=== PATIENT | female | born 2000 | race Caucasian/White ===

== ENCOUNTER 2025-06-14 23:24 | Emergency (ER) | payer OTHER ==
[2025-06-14] MEDS ORDERED: IBUPROFEN 400 MG TAB ONE (23:42)
[2025-06-15] MEDS ORDERED: NA CHLORIDE 0.9% 1,000 ML ONE ×2 (01:03→03:05)
[2025-06-15 01:18] LABS: Urine Microscopic Reflex YN NO UMIC
[2025-06-15 01:45] LABS: Absolute Lymphocytes (CBC) 0.6 K/uL (0.7-4.9); Hematocrit 39.2 % (36.0-45.0); Hemoglobin 13.3 g/dL (12.0-15.0); MCH 29.6 pg (27.0-35.0); MCHC 34.0 g/dL (32.0-36.0); MCV 87.0 fL (80-100); MPV 8.7 fL (7.6-11.3); Nucleated RBC Absolute Count 0.0 (0-0); Nucleated Red Blood Cells % 0.0 % (0-0); RBC Red Blood Cell Count 4.50 M/uL (3.86-4.86); White Blood Count 9.50 thou/uL (4.3-10.9)
[2025-06-15 02:05] LABS: ALT/SGPT 45.0 U/L (13-56); AST/SGOT 36.0 U/L (15-37); Albumin 3.6 g/dL (3.4-5.0); Albumin/Globulin Ratio 0.8 (1.1-1.8); Alkaline Phosphatase 85.0 U/L (45-117); Anion Gap 8.1 mEq/L (5.0-15.0); BUN Blood Urea Nitrogen 10.0 mg/dL (7-18); Globulin 4.5 g/dL (2.3-3.5); Glucose Level 106.0 mg/dL (74-106); Lipase 26.0 U/L (13-75); Potassium 4.1 mEq/L (3.5-5.1)
[2025-06-15 02:07] LABS: Influenza A Ag Negative; Influenza B Ag Negative; SARS-CoV-2 Antigen Rapid Res Negative (Negative)
[2025-06-15] MEDS ORDERED: AZITHROMYCIN 250 MG TAB ONE (03:05)
[2025-06-15] MEDS ORDERED: CEFTRIAXONE 1000 MG/VIAL ONE (03:05)
--- NOTE | 2025-06-15 03:14 | RAD REPORT ---
EXAM DESCRIPTION: Chest Pa And Lat (2 Views) RadLex: XR CHEST 2 VIEWS CLINICAL HISTORY: 24 years Female, Cough;Fever COMPARISON: None. FINDINGS: PA and lateral upright views of the chest. Trachea is midline. Normal size of the cardiac silhouette. Lateral right basilar opacities likely involving the right lower and right middle lobes, suspicious for pneumonia. No pleural effusion or pneumothorax. No acute osseous abnormality. IMPRESSION: Lateral right basilar opacities suspicious for pneumonia. Electronically signed by: Ana Landers MD 06/15/2025 03:09 AM CDT Due to temporary technical issues with the PACS/[employer] reporting system, reports are being juniot d by the in-house radiologist without review as a courtesy to ensure prompt reporting. The interpreting radiologist is fully responsible for the content of the report. Transcribed Date/Time: 06/15/2025 3:13 AM
--- NOTE | 2025-06-15 03:27 | EDPHYS ---
Physician Documentation [facility] Name: Marilia Holt Age: 24 yrs Sex: Female : 2000 Arrival Date: 06/14/2025 Time: 23:24 Bed 20 Private MD: ED Physician Augustus Myers HPI: 06/14 23:55 This 24 yrs old Female presents to ER via Ambulatory with complaints of Fever. cp 23:55 The patient reports fever, with an emergency department temperature of 102.8 degrees cp Fahrenheit. 23:55 Onset: The symptoms/episode began/occurred 3 day(s) ago. Associated signs and symptoms: cp Pertinent negatives: abdominal pain, chest pain, diarrhea, vomiting. Severity of symptoms: in the emergency department the symptoms are unchanged despite home interventions. Patient reports testing negative for COVID-19 and Influenza yesterday. 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 - Infectious Disease History:: Denies. - Social history:: Smoking status: Reported history of juuling and/or vaping. ROS: 23:57 Constitutional: Positive for body aches, fever, cp 23:57 Eyes: Negative for injury, pain, redness, and discharge, cp 23:57 ENT: Negative for drainage from ear(s), ear pain, difficulty swallowing, difficulty handling secretions, 23:57 Respiratory: Positive for cough, Negative for wheezing, 23:57 Abdomen/GI: Negative for abdominal pain, vomiting, diarrhea, constipation, 23:57 Skin: Negative for cellulitis, rash, 23:57 Neuro: Negative for altered mental status, dizziness, weakness, 23:57 All other systems are negative, Exam: 23:59 Constitutional: The patient appears in no acute distress, alert, awake, non-toxic, well cp developed, well nourished, febrile, obviously ill, uncomfortable, 23:59 Head/Face: Normocephalic, atraumatic. cp 23:59 Eyes: Periorbital structures: appear normal, Conjunctiva: normal, no exudate, no injection, Sclera: no appreciated abnormality, Lids and lashes: appear normal, bilaterally, 23:59 ENT: External ear(s): are unremarkable, Ear canal(s): are normal, clear, TM's: dullness, bilaterally, Nose: is normal, Mouth: Lips: moist, Oral mucosa: moist, Posterior pharynx: Airway: no evidence of obstruction, patent, Tonsils: no enlargement, no exudate, erythema, that is mild, exudate, is not appreciated, 23:59 Neck: ROM/movement: Meningeal signs: are not present, Lymph nodes: no appreciated lymphadenopathy, 23:59 Chest/axilla: Inspection: normal, 23:59 Cardiovascular: Rate: tachycardic, Rhythm: regular, 23:59 Respiratory: the patient does not display signs of respiratory distress, Respirations: normal, no use of accessory muscles, no retractions, labored breathing, is not present, Breath sounds: bronchial sounds, that are mild, are heard diffusely, stridor, is not appreciated, wheezing: is not appreciated, 23:59 Abdomen/GI: Inspection: abdomen appears normal, Palpation: abdomen is soft and non-tender, in all quadrants, 23:59 Skin: no rash present. 23:59 Neuro: Orientation: to person, place \T\ time. Mentation: is normal, Vital Signs: 23:35 BP 123 / 83; Pulse 128; Resp 19 S; Temp 102.8(O); Pulse Ox 100% on R/A; Weight 61.23 ha1 kg; Height 5 ft. 6 in. ; 06/15 01:43 BP 96 / 61; Pulse 78; Resp 18; Temp 99.3(O); Pulse Ox 100% on R/A; Pain 5/10; tb4 02:50 BP 99 / 69; Pulse 70; Resp 20; Pulse Ox 97% on R/A; Pain 0/10; tb4 03:51 BP 93 / 64; Pulse 76; Resp 18; Pulse Ox 98% on R/A; Pain 0/10; tb4 04:37 BP 96 / 86; Pulse 72; Resp 19; Temp 98.1(O); Pulse Ox 98% on R/A; Pain 0/10; tb4 06/14 23:35 Body Mass Index 21.79 (61.23 kg, 167.64 cm) ha1 06/15 01:43 Pain Scale: Adult tb4 02:50 Pain Scale: Adult tb4 03:51 Pain Scale: Adult tb4 04:37 Pain Scale: Adult tb4 MDM: 06/14 23:58 Medical Screening Exam initiated 06/15 03:25 Data reviewed: vital signs, nurses notes, lab test result(s), EKG, radiologic studies, cp plain films, and as a result, I will discharge patient. 03:25 I considered the following discharge prescriptions or medication management in the emergency department Medications were administered in the Emergency Department. See MAR. Counseling: I had a detailed discussion with the patient and/or guardian regarding the historical points, exam findings, and any diagnostic results supporting the discharge/admit diagnosis, lab results, radiology results, the need for outpatient follow up, a family practitioner, to return to the emergency department if symptoms worsen or persist or if there are any questions or concerns that arise at home. Response to treatment: the patient's symptoms have mildly improved after treatment, and as a result, I will discharge patient. ED course: Vital signs stable. Fever resolved. Discussed results of chest x-ray showing pneumonia. No signs of respiratory distress on reevaluation. Will discharge patient with oral antibiotics, with recommendation to follow-up with PCP in the next 2 to 3 days. 06/14 23:59 Order name: UA Rfx Bret Cult if indicated; Complete Time: 02:01 06/15 02:02 Interpretation: Normal except: UBLD 2+. 06/14 23:59 Order name: Test, Urine; Complete Time: 02:01 06/15 02:02 Interpretation: Reviewed. 06/15 00:59 Order name: COVID-19 Ag + Flu A+B Ag; Complete Time: 02:38 06/15 02:38 Interpretation: Reviewed. 06/15 00:59 Order name: [place] Screen Profile; Complete Time: 02:38 06/15 00:59 Order name: CBC with Diff; Complete Time: 02:38 06/15 02:38 Interpretation: Normal except: AURA% 83.2; LYM% 5.9; LYMA 0.6. 06/15 00:59 Order name: CMP; Complete Time: 02:38 06/15 02:38 Interpretation: Normal except: NA 134; BILIT 1.1; GLOB 4.5; A/G 0.8. 06/15 00:59 Order name: Lipase; Complete Time: 02:38 cp 06/15 00:59 Order name: Lactate w/ 2H reflex if indic.; Complete Time: 02:38 cp 06/15 00:59 Order name: XRAY Chest Pa And Lat (2 Views) cp 06/15 03:19 Interpretation: Report reviewed. cp 06/15 00:59 Order name: IV Saline Lock; Complete Time: 01:40 cp 06/15 00:59 Order name: Labs collected and sent; Complete Time: 01:40 cp 06/15 02:41 Order name: PO challenge; Complete Time: 03:33 cp Administered Medications: 06/14 23:52 Drug: Ibuprofen PO 800 mg PO once Route: PO; ha1 06/15 00:42 Follow up: Response: No adverse reaction tb4 01:39 Drug: NS 0.9% IV 1000 ml IV at 1 bolus Per protocol; to be given as a bolus over 60 tb4 minutes Route: IV; Rate: 1 bolus; Site: left wrist; 03:33 Follow up: Response: No adverse reaction; IV Status: Completed infusion tb4 03:31 Drug: NS 0.9% IV 1000 ml IV at 1 bolus Per protocol; to be given as a bolus over 60 tb4 minutes Route: IV; Rate: 1 bolus; Site: left hand; 04:35 Follow up: Response: No adverse reaction; IV Status: Completed infusion tb4 03:33 Drug: AZITHromycin PO 500 mg PO once Route: PO; tb4 03:52 Follow up: Response: No adverse reaction tb4 03:34 Drug: Rocephin IV 1 grams IV at calculated rate once; Given slow IV push per pharmarcy tb4 instructions Route: IV; Rate: calculated rate; Site: left hand; 03:52 Follow up: Response: No adverse reaction; IV Status: Completed infusion tb4 Disposition: 07:43 Co-signature as Attending Physician, Augustus Myers DO I agree with the assessment and tt7 plan of care. Disposition Summary: 06/15/25 03:26 Discharge Ordered Notes: Location: Home cp Problem: new cp Symptoms: have improved cp Condition: Stable cp Diagnosis - Pneumonia in diseases classified elsewhere cp - Fever presenting with conditions classified elsewhere cp - Cough cp Followup: cp - With: Private Physician - When: 2 - 3 days - Reason: Recheck today's complaints Discharge Instructions: - Discharge Summary Sheet cp - Fever, Adult cp - Community-Acquired Pneumonia, Adult cp - Cool Mist Vaporizer cp - Cough, Adult cp Forms: - Medication Reconciliation Form cp - Antibiotic Education cp - Prescription Opioid Use cp - Patient Portal Instructions cp - Leadership Thank You Letter cp Prescriptions: - Bromfed DM 2-30-10 mg/5 mL Oral syrup - administer 10 milliliter ORAL route every 8 hours as needed for cold symptoms; cp 180 milliliter; Refills: 0, Product Selection Permitted - Augmentin 875-125 mg Oral Tablet - take 1 tablet ORAL route every 12 hours for 10 days; 20 tablet; Refills: 0, cp Product Selection Permitted - Ibuprofen 800 mg Oral Tablet - take 1 tablet ORAL route every 8 hours As needed take with food; 30 tablet; cp Refills: 0, Product Selection Permitted - Zithromax Z-Donnie 250 mg Oral Tablet - take 1 tablet ORAL route as directed for 5 days Day 1 - take two (2) tablets cp one time. Day 2, 3, 4 , 5 take one (1) tablet once daily.; 6 tablet; Refills: 0, Product Selection Permitted Signatures: Dispatcher [employer] EDMS Cruz Torres, CUONG PA-C Mary Alexander RN RN ha1 Cintia Ware RN RN tb4 Augustus Myers DO DO tt7 Corrections: (The following items were deleted from the chart) 01:00 01:00 COVID-19 Ag + Flu A+B Ag+I.LAB.BRZ ordered. EDMS EDMS 01:00 01:00 MONO SCREEN PROFILE+I.LAB.BRZ ordered. EDMS EDMS 01:00 01:00 CBC+H.LAB.BRZ ordered. EDMS EDMS 01:00 01:00 COMPREHENSIVE METABOLIC PANEL+C.LAB.BRZ ordered. EDMS EDMS 01:00 01:00 LIPASE+C.LAB.BRZ ordered. EDMS EDMS 01:00 01:00 LACTATE+C.LAB.BRZ ordered. EDMS EDMS
--- NOTE | 2025-06-15 03:27 | ER ---
Nurse's Notes [facility] Name: Marilia Holt Age: 24 yrs Sex: Female : 2000 Arrival Date: 06/14/2025 Time: 23:24 Bed 20 Private MD: Diagnosis: Pneumonia in diseases classified elsewhere;Fever presenting with conditions classified elsewhere;Cough Presentation: 06/14 23:35 Chief complaint: Patient states: FEVER, BODY CHILLS, AND COUGH. GOT TESTED FOR FLU AND ha1 COVID YESTERDAY AND TESTED NEGATIVE. TOOK TYLENOL TWO HOURS AGO. 23:35 Coronavirus screen: Client denies travel out of the [place] in the last 14 days. Ebola ha1 Screen: No symptoms or risks identified at this time. Initial Sepsis Screen: Does the patient meet any 2 criteria? No. Patient's initial sepsis screen is negative. Does the patient have a suspected source of infection? No. Patient's initial sepsis screen is negative. Risk Assessment: Do you want to hurt yourself or someone else? Patient reports no desire to harm self or others. Onset of symptoms was June 14, 2025. 23:35 Method Of Arrival: Ambulatory ha1 23:35 Acuity: AMANDO 4 ha1 Triage Assessment: 23:46 General: Appears uncomfortable, Behavior is cooperative. Pain: Complains of pain in ha1 BODY ACHES. Neuro: Level of Consciousness is awake, alert, obeys commands, Oriented to person, place, time, situation. Cardiovascular: Capillary refill < 3 seconds Patient's skin is warm and dry. Respiratory: Reports cough that is productive, non-productive, Airway is patent Respiratory effort is even, unlabored, Respiratory pattern is regular, symmetrical. 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 - Infectious Disease History:: Denies. - Social history:: Smoking status: Reported history of juuling and/or vaping. Screenin/20 01:43 [facility] ED Fall Risk Assessment (Adult) History of falling in the last 3 months, tb4 including since admission No falls in past 3 months (0 pts) Confusion or Disorientation No (0 pts) Intoxicated or Sedated No (0 pts) Impaired Gait No (0 pts) Mobility Assist Device Used No (0 pt) Altered Elimination No (0 pt) Score/Fall Risk Level 0 - 2 = Low Risk Maintained a safe environment. Abuse screen: Denies threats or abuse. Denies injuries from another. Nutritional screening: No deficits noted. Tuberculosis screening: No symptoms or risk factors identified. Assessment: 01:43 General: Appears uncomfortable, Behavior is calm, cooperative. Pain: Complains of pain tb4 in Generalized body aches Pain does not radiate. Pain currently is 5 out of 10 on a pain scale. Quality of pain is described as aching, Pain began suddenly, 1 day ago. Is continuous. Neuro: Level of Consciousness is awake, alert, obeys commands, Oriented to person, place, time, situation, Handwriting Expert are equal bilaterally Moves all extremities. Full function Gait is steady, Speech is normal, Facial symmetry appears normal. Respiratory: Airway is patent Respiratory effort is even, unlabored, Respiratory pattern is regular, symmetrical. GI: No signs and/or symptoms were reported involving the gastrointestinal system. : No signs and/or symptoms were reported regarding the genitourinary system. EENT: No signs and/or symptoms were reported regarding the EENT system. Derm: No signs and/or symptoms reported regarding the dermatologic system. Skin is intact, is healthy with good turgor, Skin is dry, Skin is normal, Skin temperature is hot. Musculoskeletal: No signs and/or symptoms reported regarding the musculoskeletal system. Circulation, motion, and sensation intact. Range of motion: intact in all extremities, Reports Pain is 5 out of 10 on a pain scale. Vital Signs: 06/14 23:35 BP 123 / 83; Pulse 128; Resp 19 S; Temp 102.8(O); Pulse Ox 100% on R/A; Weight 61.23 ha1 kg; Height 5 ft. 6 in. ; 06/15 01:43 BP 96 / 61; Pulse 78; Resp 18; Temp 99.3(O); Pulse Ox 100% on R/A; Pain 5/10; tb4 02:50 BP 99 / 69; Pulse 70; Resp 20; Pulse Ox 97% on R/A; Pain 0/10; tb4 03:51 BP 93 / 64; Pulse 76; Resp 18; Pulse Ox 98% on R/A; Pain 0/10; tb4 04:37 BP 96 / 86; Pulse 72; Resp 19; Temp 98.1(O); Pulse Ox 98% on R/A; Pain 0/10; tb4 06/14 23:35 Body Mass Index 21.79 (61.23 kg, 167.64 cm) ha1 06/15 01:43 Pain Scale: Adult tb4 02:50 Pain Scale: Adult tb4 03:51 Pain Scale: Adult tb4 04:37 Pain Scale: Adult tb4 ED Course: 06/14 23:28 Patient arrived in ED. sj2 23:46 Triage completed. ha1 23:58 Cruz Torres PA-C is PHCP. cp 23:58 Augustus Myers DO is Attending Physician. cp 06/15 00:32 Test, Urine Sent. tb4 00:32 UA Rfx Bret Cult if indicated Sent. tb4 01:00 Inserted saline lock: 20 gauge in left wrist, using aseptic technique. Flushed with 10 tb4 mL NS. 01:15 XRAY Chest Pa And Lat (2 Views) In Process Unspecified. EDMS 01:39 Lactate w/ 2H reflex if indic. Sent. tb4 01:43 No provider procedures requiring assistance completed. Initial lab(s) drawn, by me, tb4 sent to lab. Urine collected: clean catch specimen, clear, COVID swab sent to lab. X-ray(s) taken. 01:43 Patient has correct armband on for positive identification. Bed in low position. Call tb4 light in reach. Side rails up X 1. Client placed on continuous cardiac and pulse oximetry monitoring. NIBP monitoring applied. Door closed. Lights dimmed. on sheet. 04:39 IV discontinued, intact, bleeding controlled, No redness/swelling at site. Pressure tb4 dressing applied. 04:39 Arm band placed on right wrist. EKG completed in triage. Results shown to MD. EKG tb4 completed in triage. Results shown to MD. 04:39 Provided Education on: Take medications as prescribed . tb4 Administered Medications: 06/14 23:52 Drug: Ibuprofen PO 800 mg PO once Route: PO; 1 06/15 00:42 Follow up: Response: No adverse reaction tb4 01:39 Drug: NS 0.9% IV 1000 ml IV at 1 bolus Per protocol; to be given as a bolus over 60 tb4 minutes Route: IV; Rate: 1 bolus; Site: left wrist; 03:33 Follow up: Response: No adverse reaction; IV Status: Completed infusion tb4 03:31 Drug: NS 0.9% IV 1000 ml IV at 1 bolus Per protocol; to be given as a bolus over 60 tb4 minutes Route: IV; Rate: 1 bolus; Site: left hand; 04:35 Follow up: Response: No adverse reaction; IV Status: Completed infusion tb4 03:33 Drug: AZITHromycin PO 500 mg PO once Route: PO; tb4 03:52 Follow up: Response: No adverse reaction tb4 03:34 Drug: Rocephin IV 1 grams IV at calculated rate once; Given slow IV push per pharmarcy tb4 instructions Route: IV; Rate: calculated rate; Site: left hand; 03:52 Follow up: Response: No adverse reaction; IV Status: Completed infusion tb4 Medication: 01:43 VIS not applicable for this client. tb4 Outcome: 03:26 Discharge ordered by MD. thomas 04:41 Discharged to home ambulatory, tb4 04:41 Condition: stable 04:41 Discharge instructions given to patient, Instructed on discharge instructions, follow up and referral plans. Demonstrated understanding of instructions, follow-up care, medications, Prescriptions given X 4, 04:41 Patient left the ED. tb4 Signatures: Dispatcher [employer] EDMS Cruz Torres, CUONG PAMary Jones cp, RN RN ha1 Pilar Sahu Terri RN RN tb4
[2025-06-15 05:05] VITALS: O2SAT 98
[2025-06-15 05:06] VITALS: BP 96/86; TEMP 98.1
== END 2025-06-15 04:41 | disposition home or self-care (01) ==
LOC: ER 23:24
DX: J18.9 Pneumonia, unspecified organism (principal); R50.9 Fever, unspecified; R05.9 Cough, unspecified; Z11.52 Encounter for screening for COVID-19; F17.290 Nicotine dependence, other tobacco product, uncomplicated
CPT/HCPCS: 96365; 96361; 85025; 36415; 86308; 81025; 83605; 81003; 83690; 80053; 71046; 99285; 87428; J7030 ×2; J0696